=== PATIENT | female | born 1995 | race Caucasian/White ===

== ENCOUNTER 2016-07-22 21:11 | Outpatient (CLI) | END 2016-07-22 21:12 | LOC: AMBL 21:11 | PROVIDERS: ATTEND Family Medicine | DX: S40.811A Abrasion of right upper arm, initial encounter (principal); S89.92XA Unspecified injury of left lower leg, initial encounter; F44.5 Conversion disorder with seizures or convulsions; V86.99XA Unspecified occupant of other special all-terrain or other off-road motor vehicle injured in nontraffic accident, initial encounter ==

== ENCOUNTER 2016-07-25 19:54 | Emergency (ER) ==
[2016-07-25 19:55] VITALS: BMI 35.2
[2016-07-25 20:01] VITALS: BP 134/67; TEMP 98.7
[2016-07-25] MEDS ORDERED: SODIUM CHLORIDE 1,000 ML IV STA (20:09)
[2016-07-25 20:33] LABS: BASOPHILS % (AUTO) 0.2 % (0.0-3.0); EOSINOPHILS # (AUTO) 0.1 K/ul (0.0-0.7); EOSINOPHILS % (AUTO) 1.2 % (0.0-7.0); HEMATOCRIT 36.8 % (37.0-47.0); HEMOGLOBIN 12.6 g/dl (12.0-16.0); IMMATURE GRANULOCYTE % (AUTO) 0.4 % (0.0-5.0); LYMPHOCYTES # (AUTO) 1.7 K/uL (0.60-3.4); LYMPHOCYTES % (AUTO) 17.3 (10.0-50.0); MEAN CORPUSCULAR HEMOGLOBIN 28.4 pg (27.0-31.0); MEAN CORPUSCULAR HGB CONC 34.2 (31.8-35.4); MEAN CORPUSCULAR VOLUME 83.1 fl (81.0-99.0); MONOCYTES # (AUTO) 0.7 K/uL (0.4-2.0); MONOCYTES % (AUTO) 6.8 (0-10); NEUTROPHILS # (AUTO) 7.4 K/ul (2.0-6.9); NEUTROPHILS % (AUTO) 74.1; PLATELET COUNT 215 10^3/uL (140-440); RED BLOOD COUNT 4.43 10^6/ul (4.20-5.40)
[2016-07-25 20:41] LABS: ABG BASE EXCESS -1 (-2.0-2.0); ABG HCO3 22.2 (22.0-26.0); ABG PCO2 27.7 mmHg (35-45); ABG PH 7.512 (7.35-7.45); ABG TCO2 23 (22.0-28.0)
[2016-07-25 20:49] LABS: SERUM PREGNANCY INTERNAL QC INTERNAL QC VALID
[2016-07-25 21:07] LABS: ERYTHROCYTE SEDIMENTATION RATE 18 mm/hr (0-20); ESR INTERNAL QC INTERNAL QC VALID
[2016-07-25 21:09] LABS: ALANINE AMINOTRANSFERASE 23 U/L (12-78); ALBUMIN 3.9 g/dL (3.4-5.0); ALBUMIN/GLOBULIN RATIO 1.34; ALKALINE PHOSPHATASE 77 U/L (42-98); ANION GAP 15.1; ASPARTATE AMINO TRANSFERASE 26 U/L (15-37); BILIRUBIN,TOTAL 0.48 mg/dL (0.00-1.20); BLOOD UREA NITROGEN 14 mg/dL (7-18); BUN/CREATININE RATIO 18.66; CALCIUM 9.6 mg/dL (8.2-10.2); CARBON DIOXIDE 24 mmol/L (21-32); CHLORIDE 104 mmol/L (98-107); CREATINE KINASE 509 U/L; CREATININE 0.75 mg/dL (0.60-1.30); GLUCOSE 82 mg/dL (70-110); POTASSIUM 4.1 mmol/L (3.5-5.10); SODIUM 139 mmol/L (136-145); TOTAL PROTEIN 6.8 g/dL (6.4-8.2)
[2016-07-25 21:10] LABS: CREATINE KINASE MB 0.9 ng/ml (0.0-3.6)
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
--- NOTE | 2016-07-25 22:06 | CT ---
EXAM: CTA CHEST (PE PROTOCOL) HISTORY: Chest injury, pain TECHNIQUE: CTA with intravenous contrast. 3-mm axial sections. Coronal and sagittal reformations. 3-D reconstructions. mL Omnipaque. FINDINGS: Heart size is normal. No pericardial effusion. No pulmonary arterial filling defect is identified. There is no pulmonary consolidation, pleural fluid or pneumothorax. Normal vascularity. No acute bony deformity or fracture. No obvious peripheral soft tissue hematoma. IMPRESSION: No pulmonary arterial thromboembolism. Lungs are clear. No pleural fluid or pneumothor ax. No fracture.
[2016-07-25] MEDS ORDERED: MORPHINE 2 MG/ML SYRINGE IVP STA (22:19)
[2016-07-25] MEDS ORDERED: ZOFRAN 4 MG/2 ML IVP STA (22:19)
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
[2016-07-25] MEDS ORDERED: TORADOL IVP STA (22:23)
== END 2016-07-25 22:55 | disposition home or self-care (01) ==
LOC: ED 19:54
DX: R07.89 Other chest pain (principal); V86.99XA Unspecified occupant of other special all-terrain or other off-road motor vehicle injured in nontraffic accident, initial encounter; F17.210 Nicotine dependence, cigarettes, uncomplicated
CPT/HCPCS: 36415; 80053; 82550; 82553; 82803; 84484; 84703; 85025; 85651; 87040; 93005; 93010; 96361; 96374; 99283